=== PATIENT | female | born 1960 | race Caucasian/White ===

== ENCOUNTER 2021-07-14 11:01 | Day surgery (SDC) | payer MEDICARE ==
--- NOTE | 2021-07-14 09:14 | HP ---
DATE OF SURGERY: 07/14/2021 HISTORY OF PRESENT ILLNESS: The patient is a 61-year-old last colonoscopy five years or so ago, had some polyps. No bloody stools. No change in bowel movements. No pain. Family history negative for colon cancer. The patient is in need of follow up screening colonoscopy. PAST MEDICAL HISTORY: Hypothyroidism. PAST SURGICAL HISTORY: Three sections and cholecystectomy in the past. MEDICATIONS: Levothyroxine, amitriptyline, vitamin B12, vitamin D. ALLERGIES: TOPIRAMATE. FAMILY HISTORY: Hypertension, diabetes, lung cancer. Negative for colon cancer. SOCIAL HISTORY: One pack per day or less smoker, denies alcohol abuse. REVIEW OF SYSTEMS: Fourteen systems reviewed. No chest pain or palpitations. Other systems negative or noncontributory as above and per preadmission questionnaire. PHYSICAL EXAMINATION: GENERAL: No acute distress. HEENT: Sclerae nonicteric. NECK: No JVD. CHEST: Equal excursion, nonlabored breathing. CVS: Regular rate and rhythm. ABDOMEN: Soft. No peritoneal signs. EXTREMITIES: No significant edema. NEURO: Alert, oriented, moving extremities symmetrically. RECTAL: Deferred timed to endoscopy exam. PSYCH: Appropriate mood and affect. IMPRESSION: Need for follow up screening colonoscopy, prior history of polyps. I feel she is a candidate. Shown the risk sheet explained the procedure in detail but not limited to bleeding or infection, risk of bowel injury or perforation possibly requiring open procedure, risk of missed or nondiagnosis or incomplete exam possibly requiring barium enema, other studies or procedures, general risk of anesthesia or sedation, risk of bowel prep but not limited to, consent obtained. Will proceed with outpatient colonoscopy under MAC anesthesia.
[2021-07-14] MEDS ORDERED: Lactated Ringers 1,000 ML IV SCH (11:30)
[2021-07-14] MEDS ORDERED: SUBLIMAZE 100 MCG/2 ML ONE (12:51)
[2021-07-14] MEDS ORDERED: Xylocaine-Mpf 2% 5 Ml Vial ONE (12:51)
[2021-07-14] MEDS ORDERED: DIPRIVAN 200 MG/20 ML IV ONE (12:51)
[2021-07-14 14:25] VITALS: BP 117/65; PULSE 64; O2SAT 100
--- NOTE | 2021-07-15 08:32 | OP ---
SURGERY DATE/TIME: 07/14/2021 1250 PREOPERATIVE DIAGNOSES: 1) Need for follow up screening colonoscopy. 2) Prior history of polyps. POSTOPERATIVE DIAGNOSES: 1) Small polyps transverse colon. 2) A few small diverticula left colon. 3) Fair bowel prep. 4) ASA Class II. PROCEDURES: Colonoscopy to cecum with hot biopsy polypectomy of three small transverse colon polyps. SURGEON: Dr. Vic Bess. ANESTHESIA: MAC. ESTIMATED BLOOD LOSS: Minimal. INDICATIONS: As noted above. Risks and benefits explained in detail but not limited to and consent obtained. DESCRIPTION OF PROCEDURE AND FINDINGS: The patient is taken to the endoscopy room. MAC anesthesia induced. After official time out and no disagreement with planned procedure, digital rectal exam did not reveal any rectal masses. Video colonoscope inserted and passed up through the slightly tortuous sigmoid, descending, transverse and ascending colon around to the cecum. Appendiceal orifice and valve were well visualized and photo documented. The scope was then carefully withdrawn over the next 8 minutes. Prep overall was fair with a little bit of liquidy stool suctioned and irrigated as clear as possible. No signs of any large polyps. There were three small early polyps versus hyperplastic lesions in the transverse colon removed with hot biopsy forceps with brief bursts of cautery. Good hemostasis noted. A few small diverticula noted in the left colon. There were no signs of any large polyps, masses or obstructing lesions. The scope is withdrawn. There were no immediate complications. Withdrawal time had been around 8 minutes.
== END 2021-07-14 14:30 | disposition home or self-care (01) ==
LOC: SDC 11:01
PROVIDERS: ATTEND Surgery
DX: Z09 Encounter for follow-up examination after completed treatment for conditions other than malignant neoplasm (principal); Z86.010 Personal history of colon polyps; D12.3 Benign neoplasm of transverse colon; K57.90 Diverticulosis of intestine, part unspecified, without perforation or abscess without bleeding; Z79.899 Other long term (current) drug therapy
CPT/HCPCS: J2704; J3010